=== PATIENT | male | born 1995 | race Hispanic/Latino ===

== ENCOUNTER 2018-08-28 16:36 | Emergency (ER) | payer BC ==
[~2018-08-28 16:36] MED LIST: ISOVUE-370 76%-LOCM 1 ML ONE
[2018-08-28] MEDS ORDERED: methylPREDNISolone Sod Succ/PF 125 MG/2 ML VIAL ONE (18:03)
[2018-08-28] MEDS ORDERED: diphenhydrAMINE 12.5 MG/5 ML UDCUP ONE (18:03)
[2018-08-28] MEDS ORDERED: diphenhydrAMINE 50 MG/ML VIAL ONE (18:04)
[2018-08-28 18:24] LABS: #Basophils 0.1 thou/uL (0.0-0.2); #Eosinphils 0.3 thou/uL (0.0-0.7); #Lymphocytes 3.4 thou/uL (1.20-3.40); #Monocytes 0.9 thou/uL (0.11-0.59); #Neutrophils 8.6 thou/uL (1.40-6.50); %Basophils 0.4 % (0.0-1.0); %Eosinophils 2.6 % (0.0-10.0); %Lymphocytes 25.5 % (28.0-48.0); %Monocytes 6.5 % (0.0-4.0); Hemoglobin 16.7 g/dL (14.0-18.0); Mean Corpuscular Hemoglobin 28.3 pg (25.0-35.0); Mean Corpuscular Volume 85.5 fL (78.0-98.0); Mean Platelet Volume 7.1 fL (7.4-10.4); Platelet Count 312 thou/uL (130-400); RBC Distribution Width 12.9 % (11.5-14.5); Red Blood Cell (RBC) Count 5.89 mill/uL (4.00-5.20); White Blood Cell (WBC) Count 13.2 thou/uL (4.8-10.8)
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
[2018-08-28 18:44] LABS: ALT (SGPT) 33 U/L (8-55); AST (SGOT) 15 U/L (5-34); Albumin 4.3 g/dL (3.5-5.0); Alkaline Phosphatase 176 U/L (Less than 750); Anion Gap 14 mmol/L (10-20); BUN (Urea Nitrogen) 14 mg/dL (8.9-20.6); Bilirubin, Total 0.3 mg/dL (0.2-1.2); Calc. Creatinine Clearance 0 mL/min (70-130); Calcium 9.2 mg/dL (7.8-10.44); Carbon Dioxide 21 mmol/L (22-29); Chloride 106 mmol/L (98-107); Estimated GFR-MDRD 79; Globulin 3.7 g/dL (2.4-3.5); Glucose 88 mg/dL (70-105); Potassium 3.9 mmol/L (3.5-5.1); Sodium 137 mmol/L (136-145)
== END 2018-08-28 19:52 | disposition home or self-care (01) ==
LOC: ERS 16:36
DX: K94.09 Other complications of colostomy (principal); T50.8X5A Adverse effect of diagnostic agents, initial encounter
CPT/HCPCS: 36415; 74177; 80053; 85025; 96374; 96375; J1200; J2930; Q0163

== ENCOUNTER 2018-10-30 08:27 | Outpatient (CLI) | payer BC ==
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
[2018-10-30] MEDS ORDERED: MD-Gastroview 120 ML BOT ONE (16:29)
== END 2018-10-30 08:28 | disposition home or self-care (01) ==
LOC: RAD 08:27
PROVIDERS: ATTEND Surgery
DX: K63.1 Perforation of intestine (nontraumatic) (principal); Z98.890 Other specified postprocedural states
CPT/HCPCS: 74270; Q9963

== ENCOUNTER 2018-11-28 15:00 | Inpatient (IN) | payer BC ==
[2018-12-01] MEDS ORDERED: Neomycin-Polymyxin 1 ML AMP ONE (07:02)
[2018-12-01] MEDS ORDERED: cefOXitin 2 GM VIAL ONE ×2 (07:05→09:35)
[2018-12-01] MEDS ORDERED: Ketorolac Tromethamine 30 MG/ML VIAL ONE (07:05)
[2018-12-01] MEDS ORDERED: Sodium Chloride 0.9% 100 ML ONE (07:09)
[2018-12-01] MEDS ORDERED: Fentanyl 100 MCG/2 ML VIAL ONE ×4 (07:14→12:19)
[2018-12-01] MEDS ORDERED: Midazolam HCl 2 mg/2 ml Vial ONE (07:14)
[2018-12-01 07:36] LABS: Anion Gap 12 mmol/L (10-20); BUN (Urea Nitrogen) 12 mg/dL (8.9-20.6); Calc. Creatinine Clearance 173 mL/min (70-130); Calcium 9.6 mg/dL (7.8-10.44); Carbon Dioxide 25 mmol/L (22-29); Chloride 105 mmol/L (98-107); Estimated GFR-MDRD 75; Glucose 90 mg/dL (70-105); Sodium 138 mmol/L (136-145)
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
[2018-12-01] MEDS ORDERED: Morphine 2 MG/ML SYRINGE SLOW IVP PRN (10:16)
[2018-12-01] MEDS ORDERED: Dextrose 50% Abboject 50 ML SYRINGE SLOW IVP PRN (10:16)
[2018-12-01] MEDS ORDERED: Dextrose 5% in Water 1,000 ML IV PRN (10:16)
[2018-12-01] MEDS ORDERED: Promethazine HCl 25 MG/ML VIAL IM PRN (10:19)
[2018-12-01] MEDS ORDERED: Promethazine HCl 25 MG/ML VIAL SLOW IVP PRN (10:19)
[2018-12-01] MEDS ORDERED: Ondansetron HCl/PF 4 MG/2 ML Vial IVP PRN (10:19)
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
[2018-12-01] MEDS ORDERED: Morphine 2 MG/ML SYRINGE ONE ×3 (13:55→15:03)
[2018-12-01 15:32] VITALS: BMI 46.0
[2018-12-01] MEDS: Ondansetron PF 4 MG/2 ML Vial IVP PRN ×2 (16:05→21:08)
[2018-12-01] MEDS: Sodium Chloride 0.9% 1,000 ML IV SCH ×3 (16:06→20:51)
[2018-12-01] MEDS: Morphine 4 MG/ML VIAL SLOW IVP PRN ×3 (16:06→20:50)
[2018-12-01] MEDS: Enoxaparin Sodium 40 MG/0.4 ML SYRINGE SC SCH (20:50)
[2018-12-01] MEDS: Famotidine/PF 20 mg/2ml Vial SLOW IVP SCH (20:51)
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
[2018-12-02 05:33] LABS: #Eosinphils 0.2 thou/uL (0.0-0.7); #Lymphocytes 2.2 thou/uL (1.20-3.40); #Monocytes 1.2 thou/uL (0.11-0.59); #Neutrophils 12.7 thou/uL (1.40-6.50); %Basophils 0.2 % (0.0-1.0); %Eosinophils 1.3 % (0.0-10.0); %Lymphocytes 13.3 % (21.0-51.0); %Monocytes 7.4 % (0.0-10.0); %Neutrophils 77.9 % (42.0-75.0); Hemoglobin 14.3 g/dL (14.0-18.0); Mean Corpuscular HGB CONC 34.1 g/dL (32.0-36.0); Mean Corpuscular Hemoglobin 29.9 pg (27.0-31.0); Mean Corpuscular Volume 87.8 fL (78.0-98.0); Mean Platelet Volume 7.9 fL (7.4-10.4); Platelet Count 246 thou/uL (130-400); RBC Distribution Width 11.8 % (11.5-14.5); Red Blood Cell (RBC) Count 4.79 mill/uL (4.70-6.10); White Blood Cell (WBC) Count 16.4 thou/uL (4.8-10.8)
[2018-12-02 06:20] LABS: ALT (SGPT) 35 U/L (8-55); AST (SGOT) 18 U/L (5-34); Albumin 3.6 g/dL (3.5-5.0); Alkaline Phosphatase 142 U/L (40-150); Anion Gap 11 mmol/L (10-20); BUN (Urea Nitrogen) 8 mg/dL (8.9-20.6); Bilirubin, Total 0.7 mg/dL (0.2-1.2); Calc. Creatinine Clearance 225 mL/min (70-130); Carbon Dioxide 26 mmol/L (22-29); Chloride 103 mmol/L (98-107); Estimated GFR-MDRD Greater than 90; Globulin 3.1 g/dL (2.4-3.5); Glucose 103 mg/dL (70-105); Protein, Total 6.7 g/dL (6.0-8.3); Sodium 136 mmol/L (136-145)
[2018-12-02] MEDS: Sodium Chloride 0.9% 1,000 ML IV SCH (07:56)
[2018-12-02] MEDS: Famotidine/PF 20 mg/2ml Vial SLOW IVP SCH ×2 (08:04→20:52)
[2018-12-02 08:52] LABS: Magnesium 1.7 mg/dL (1.6-2.6); Phosphorus 3.6 mg/dL (2.3-4.7)
[2018-12-02] MEDS ORDERED: traMADol HCl 50 MG TAB PO PRN ×2 (11:26)
[2018-12-02] MEDS: Acetaminophen 500 MG TAB PO SCH ×3 (11:54→23:38)
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
[2018-12-02] MEDS ORDERED: Ibuprofen 600 MG TAB PO SCH (14:00)
[2018-12-02] MEDS: Enoxaparin Sodium 40 MG/0.4 ML SYRINGE SC SCH (20:52)
[2018-12-02] MEDS: Ketorolac Tromethamine 30 MG/ML VIAL IVP SCH (20:52)
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
[2018-12-03] MEDS: Acetaminophen 500 MG TAB PO SCH ×3 (05:46→18:24)
[2018-12-03 05:57] LABS: #Eosinphils 0.6 thou/uL (0.0-0.7); #Lymphocytes 2.7 thou/uL (1.20-3.40); #Monocytes 1.7 thou/uL (0.11-0.59); #Neutrophils 9.4 thou/uL (1.40-6.50); %Basophils 0.3 % (0.0-1.0); %Eosinophils 3.9 % (0.0-10.0); %Lymphocytes 18.8 % (21.0-51.0); %Monocytes 11.5 % (0.0-10.0); %Neutrophils 65.4 % (42.0-75.0); Hemoglobin 14.4 g/dL (14.0-18.0); Mean Corpuscular HGB CONC 34.6 g/dL (32.0-36.0); Mean Corpuscular Hemoglobin 30.2 pg (27.0-31.0); Mean Corpuscular Volume 87.1 fL (78.0-98.0); Mean Platelet Volume 7.6 fL (7.4-10.4); Platelet Count 232 thou/uL (130-400); RBC Distribution Width 11.8 % (11.5-14.5); Red Blood Cell (RBC) Count 4.76 mill/uL (4.70-6.10); White Blood Cell (WBC) Count 14.4 thou/uL (4.8-10.8)
[2018-12-03 07:04] LABS: Anion Gap 11 mmol/L (10-20); BUN (Urea Nitrogen) 7 mg/dL (8.9-20.6); Calc. Creatinine Clearance 202 mL/min (70-130); Calcium 9.1 mg/dL (7.8-10.44); Carbon Dioxide 28 mmol/L (22-29); Chloride 101 mmol/L (98-107); Estimated GFR-MDRD 88; Glucose 89 mg/dL (70-105); Magnesium 1.8 mg/dL (1.6-2.6); Phosphorus 2.2 mg/dL (2.3-4.7); Potassium 3.4 mmol/L (3.5-5.1); Sodium 137 mmol/L (136-145)
[2018-12-03] MEDS ORDERED: Magnesium 2 GM/50 ML 2 GM in Premix Bag 1 BAG IVPB SCH (07:30)
[2018-12-03] MEDS: Famotidine/PF 20 mg/2ml Vial SLOW IVP SCH ×2 (09:06→20:48)
[2018-12-03] MEDS: Ketorolac Tromethamine 30 MG/ML VIAL IVP SCH ×2 (09:09→20:47)
--- NOTE | 2018-12-03 10:58 | PRG ---
DATE OF SERVICE: 12/03/2018 SUBJECTIVE: Mr. Weir is a 23-year-old man, who is postop day #2 today status post mini-laparotomy, takedown of ileostomy with primary enteroenterostomy. He is awake and alert today. Reports adequate pain control. He is tolerating clear liquid diet and he has had a bowel movement. He is passing flatus. OBJECTIVE: VITAL SIGNS: Today includes blood pressure 121/74, pulse 54, respiratory rate is 18, temperature 98.3 degrees Fahrenheit, and oxygen saturation is 97% on room air. HEART: Reveals regular rate and rhythm. No murmurs or gallops auscultated. LUNGS: Clear to auscultation bilaterally. Breathing, regular and nonlabored. ABDOMEN: Soft and obese with incisional tenderness to palpation. He has no rebound tenderness present. VAC dressing is over the incisional closure. NEUROLOGIC: Reveals no focal deficits present. LABORATORY DATA: Laboratory findings today includes a CBC with 14,400 white blood cells and hemoglobin and hematocrit 14.4 and 41.5 respectively. Platelet count is 232,000. Metabolic profile; sodium is 137, potassium is 3.4, chloride is 101, bicarb is 28, BUN is 7, creatinine is 1.06, glucose is 89, magnesium is 1.8, and phosphorus is 2.2. IMPRESSION: 1. Postop day #2 status post mini laparotomy with takedown of ileostomy and primary anastomosis. 2. Acute hypokalemia. 3. Acute hypomagnesemia. 4. Acute hypophosphatemia. PLAN: 1. Correct abnormal electrolytes. 2. Increase diet to full liquids. 3. Increase activity per walking program. Anticipate discharge over the next 24 hours, if the patient remains hemodynamically stable with no exacerbation of abdominal pain. Above findings and plan discussed with the patient and his mother at bedside. They both indicated understanding the information given. I have answered their questions. Job ID: [id number]
[2018-12-03] MEDS ORDERED: Potassium Chloride 20 MEQ TAB PO SCH (11:15)
[2018-12-03] MEDS ORDERED: PHOS-NAK 1 PKT PACK PO SCH (11:15)
[2018-12-03] MEDS: Enoxaparin Sodium 40 MG/0.4 ML SYRINGE SC SCH (20:48)
[2018-12-04] MEDS: Acetaminophen 500 MG TAB PO SCH ×2 (00:11→06:16)
--- NOTE | 2018-12-04 01:08 | PRG ---
DATE OF SERVICE: 12/03/2018 SUBJECTIVE: The patient remains on the surgical floor. The patient is postop day #2, status post mini-laparotomy, takedown of ileostomy with primary enterocolostomy. The patient is currently sleeping comfortably. OBJECTIVE: VITAL SIGNS: Stable, afebrile. GENERAL: Resting comfortably, respirations are even and unlabored, no acute distress. ASSESSMENT: 1. Postop day #2, status post mini-laparotomy with takedown of ileostomy and primary anastomosis. 2. Acute hypokalemia. 3. Acute hypomagnesium. 4. Acute hypophosphatemia. PLAN: Correct electrolytes as needed. Increase diet. Continue full liquids as tolerated. Increase activity per walking program. Job ID: [id number]
[2018-12-04 07:27] LABS: Anion Gap 11 mmol/L (10-20); BUN (Urea Nitrogen) 9 mg/dL (8.9-20.6); Calc. Creatinine Clearance 212 mL/min (70-130); Calcium 9.3 mg/dL (7.8-10.44); Carbon Dioxide 26 mmol/L (22-29); Chloride 105 mmol/L (98-107); Estimated GFR-MDRD Greater than 90; Glucose 88 mg/dL (70-105); Phosphorus 3.5 mg/dL (2.3-4.7); Potassium 3.4 mmol/L (3.5-5.1); Sodium 139 mmol/L (136-145)
[2018-12-04] MEDS ORDERED: PHOS-NAK 1 PKT PACK PO SCH (07:45)
[2018-12-04] MEDS ORDERED: Ibuprofen 800 MG TAB PO SCH (07:45)
[2018-12-04] MEDS ORDERED: Potassium Chloride 20 MEQ TAB PO SCH (07:45)
[2018-12-04 08:14] VITALS: BP 148/91; TEMP 98.7
[2018-12-04] MEDS: Famotidine/PF 20 mg/2ml Vial SLOW IVP SCH (08:17)
--- NOTE | 2018-12-04 11:56 | DIS ---
DATE OF ADMISSION: 12/01/2018 DATE OF DISCHARGE: 12/04/2018 RESIDENT: Km Gudino MD. ATTENDING: Tristan Krause DO. CONSULTS: None. PROCEDURES: On 12/01, mini-laparotomy with ileostomy takedown and primary ileoileostomy. DISCHARGE MEDICATIONS: 1. Acetaminophen. 2. Ibuprofen. 3. Tramadol. HISTORY OF PRESENT ILLNESS: The patient is postop day 3, status post mini-laparotomy, takedown of ileostomy with primary enterocolostomy. The patient is resting comfortably today. He has been walking well with a walking program and is ready to go home. We discussed with the patient when to follow up with Dr. Krause and the patient understood and agreed. OBJECTIVE: VITAL SIGNS: Stable. HEENT: Atraumatic and normocephalic. GENERAL: Resting comfortably. RESPIRATORY: Breathing is nonlabored. ABDOMEN: The dressing and vacuum from surgery were removed. The area was cleaned and dry clean dressing was placed over the wound. DIAGNOSES: 1. Postop day #3, status post mini-laparotomy and takedown of ileostomy and primary anastomosis. 2. Hypokalemia. Potassium was given this morning. 3. Hypomagnesium, resolved. 4. Hypophosphatemia, resolved. DISPOSITION: Stable. DISCHARGE INSTRUCTIONS: 1. Location: Home. 2. Diet: As tolerated. 3. Activity: As tolerated. FOLLOWUP: Followup up with Dr. Krause, Trauma in 10 days for zeynep to be removed. Job ID: [id number] MTDD
== END 2018-12-04 13:20 | disposition home or self-care (01) | DRG 330 ==
LOC: SURG A 12-01 06:33
PROVIDERS: ADMIT Surgery; ATTEND Surgery
PROC: 0DBB0ZZ Excision of Ileum, Open Approach (ICD-10-PCS; principal; 2018-12-01)
DX: Z43.2 Encounter for attention to ileostomy (principal); Z68.42 Body mass index [BMI] 45.0-49.9, adult; E66.01 Morbid (severe) obesity due to excess calories; E87.6 Hypokalemia; E83.42 Hypomagnesemia; E83.39 Other disorders of phosphorus metabolism
CPT/HCPCS: 36415; 36416; 80048; 80053; 83036; 83735; 84100; 85025; 93005; 93010; J0131; J0694; J1650; J1885; J2250; J2270; J2405; J3010; J3475; J3490; J7050; S0028

== ENCOUNTER 2023-01-24 13:57 | Emergency (ER) | payer BC ==
[2023-01-24] MEDS ORDERED: Ketorolac Tromethamine 30 MG/ML VIAL ONE (15:29)
== END 2023-01-24 16:28 | disposition home or self-care (01) ==
LOC: ERS 13:57
DX: S23.41XA Sprain of ribs, initial encounter (principal); X50.0XXA Overexertion from strenuous movement or load, initial encounter
CPT/HCPCS: 71046; 96372; J1885

== ENCOUNTER 2023-02-24 21:02 | Observation (INO) | payer BC ==
[2023-02-24 21:29] LABS: #Basophils 0.1 thou/uL (0.0-0.2); #Eosinphils 0.6 thou/uL (0.0-0.7); #Neutrophils 9.8 thou/uL (1.40-6.50); %Basophils 0.3 % (0.0-1.0); %Eosinophils 3.9 % (0.0-10.0); %Lymphocytes 20.1 % (21.0-51.0); %Monocytes 6.7 % (0.0-10.0); %Neutrophils 68.7 % (42.0-75.0); Hematocrit 47.6 % (42.0-52.0); Hemoglobin 16.1 g/dL (14.0-18.0); Mean Corpuscular HGB CONC 33.8 g/dL (32.0-36.0); Mean Corpuscular Hemoglobin 28.1 pg (27.0-31.0); Mean Corpuscular Volume 83.1 fl (78.0-98.0); Mean Platelet Volume 9.7 fL (7.4-10.4); Platelet Count 273 10x3/uL (130-400); RBC Distribution Width 13.4 % (11.5-14.5); Red Blood Cell (RBC) Count 5.73 mill/uL (4.70-6.10); White Blood Cell (WBC) Count 14.3 10x3/uL (4.8-10.8)
[2023-02-24] MEDS ORDERED: Ondansetron PF 4 MG/2 ML Vial ONE (21:32)
[2023-02-24] MEDS ORDERED: Morphine 4 MG/ML VIAL ONE (21:32)
[2023-02-24 21:50] LABS: ALT (SGPT) 15 U/L (8-55); AST (SGOT) 14 U/L (5-34); Albumin 4.2 g/dL (3.5-5.0); Alkaline Phosphatase 141 U/L (40-110); Anion Gap 15 mmol/L (10-20); BUN (Urea Nitrogen) 16 mg/dL (8.9-20.6); Bilirubin, Total 0.4 mg/dL (0.2-1.2); Calc. Creatinine Clearance 0 mL/min (70-130); Calcium 9.3 mg/dL (7.8-10.44); Carbon Dioxide 24 mmol/L (22-29); Chloride 106 mmol/L (98-107); Estimated GFR 96; Globulin 3.7 g/dL (2.4-3.5); Glucose 99 mg/dL (70-105); Lipase 12 U/L (8-78); Potassium 3.9 mmol/L (3.5-5.1); Protein, Total 7.9 g/dL (6.0-8.3); Sodium 141 mmol/L (136-145)
[2023-02-25] MEDS ORDERED: Acetaminophen 650 MG Suppository PR PRN (01:05)
[2023-02-25] MEDS ORDERED: Ondansetron PF 4 MG/2 ML Vial IVP PRN (01:05)
[2023-02-25] MEDS ORDERED: Ondansetron ODT 4 MG TAB PO PRN (01:05)
[2023-02-25] MEDS ORDERED: Acetaminophen 325 MG TAB PO PRN (01:05)
[2023-02-25] MEDS: Dextrose 5%-Lactated Ringers 1,000 ML IV SCH ×2 (01:30→09:32)
[2023-02-25 01:51] VITALS: BMI 51.0
[2023-02-25 06:41] LABS: #Eosinphils 0.5 thou/uL (0.0-0.7); #Monocytes 0.9 thou/uL (0.11-0.59); #Neutrophils 7.1 thou/uL (1.40-6.50); %Basophils 0.3 % (0.0-1.0); %Eosinophils 4.6 % (0.0-10.0); %Lymphocytes 24.7 % (21.0-51.0); %Monocytes 7.8 % (0.0-10.0); %Neutrophils 62.3 % (42.0-75.0); Hematocrit 48.3 % (42.0-52.0); Hemoglobin 15.7 g/dL (14.0-18.0); Mean Corpuscular HGB CONC 32.5 g/dL (32.0-36.0); Mean Corpuscular Hemoglobin 27.9 pg (27.0-31.0); Platelet Count 277 10x3/uL (130-400); RBC Distribution Width 13.4 % (11.5-14.5); Red Blood Cell (RBC) Count 5.62 mill/uL (4.70-6.10); White Blood Cell (WBC) Count 11.4 10x3/uL (4.8-10.8)
[2023-02-25 06:47] LABS: Mean Corpuscular Volume 85.9 fl (78.0-98.0)
[2023-02-25 07:10] LABS: Anion Gap 14 mmol/L (10-20); BUN (Urea Nitrogen) 13 mg/dL (8.9-20.6); Calc. Creatinine Clearance 259 mL/min (70-130); Calcium 8.7 mg/dL (7.8-10.44); Carbon Dioxide 23 mmol/L (22-29); Chloride 106 mmol/L (98-107); Estimated GFR 115; Glucose 100 mg/dL (70-105); Potassium 4.1 mmol/L (3.5-5.1); Sodium 139 mmol/L (136-145)
[2023-02-25] MEDS ORDERED: Famotidine 20 MG TAB PO SCH (09:00)
[2023-02-25 16:32] VITALS: BP 158/102; TEMP 97.6
== END 2023-02-25 18:18 | disposition home or self-care (01) ==
LOC: ERS 21:02 → T4-B 02-25 00:13
PROVIDERS: ADMIT Student in an Organized Health Care Education/Training Program; ATTEND Hospitalist
DX: R10.9 Unspecified abdominal pain (principal); E66.9 Obesity, unspecified; Z79.899 Other long term (current) drug therapy; Z91.041 Radiographic dye allergy status; F12.10 Cannabis abuse, uncomplicated; Z98.890 Other specified postprocedural states
CPT/HCPCS: 36415; 74176; 80048; 80053; 83690; 85025; 96361; 96374; 96375; G0378; J2270; J2405

== ENCOUNTER 2023-05-06 11:46 | Emergency (ER) | payer BC | END 2023-05-06 13:40 | disposition home or self-care (01) | LOC: ERS 11:46 | DX: M79.601 Pain in right arm (principal); R20.2 Paresthesia of skin; Z55.6 Problems related to health literacy | CPT/HCPCS: 99283 ==

== ENCOUNTER 2023-05-17 04:47 | Emergency (ER) | payer BC ==
[2023-05-17] MEDS ORDERED: Lidocaine 1% MPF 2 ML VIAL ONE (05:16)
[2023-05-17] MEDS ORDERED: Ketorolac Tromethamine 30 MG (1 mL) VIAL ONE (05:16)
[2023-05-17] MEDS ORDERED: cefTRIAXone (ROCEPHIN) 500 MG VIAL ONE (05:17)
== END 2023-05-17 05:40 | disposition home or self-care (01) ==
LOC: ERS 04:47
DX: J01.00 Acute maxillary sinusitis, unspecified (principal)
CPT/HCPCS: 96372; 99283; J0696; J1885

== ENCOUNTER 2023-09-05 10:02 | Emergency (ER) | payer BC ==
[2023-09-05] MEDS ORDERED: Proparacaine 0.5% Opth 15 ML BOT ONE (10:14)
[2023-09-05] MEDS ORDERED: Fluorescein Opthalmic Strip ONE (10:14)
== END 2023-09-05 10:55 | disposition home or self-care (01) ==
LOC: ERS 10:02
DX: H16.002 Unspecified corneal ulcer, left eye (principal)
CPT/HCPCS: 99283

== ENCOUNTER 2023-12-01 19:06 | Emergency (ER) | payer BC | END 2023-12-01 19:48 | disposition home or self-care (01) | LOC: ERS 19:06 | DX: Z02.79 Encounter for issue of other medical certificate (principal); I10 Essential (primary) hypertension; Z79.899 Other long term (current) drug therapy | CPT/HCPCS: 99281 ==

== ENCOUNTER 2024-02-20 10:54 | Day surgery (SDC) | payer SELFPAY ==
[2024-02-20] MEDS ORDERED: Bupivacaine PF 0.5% 30 ML VIAL ONE ×2 (12:07→12:34)
[2024-02-20] MEDS ORDERED: fentaNYL 50 mcg/mL 1 mL Vial ONE (12:07)
[2024-02-20] MEDS ORDERED: EPINEPHrine 1 MG/ML VIAL ONE (12:07)
[2024-02-20] MEDS ORDERED: Midazolam HCl 2 mg/2 ml Vial ONE (12:07)
[2024-02-20] MEDS ORDERED: fentaNYL PF 100 MCG/2 ML SYRINGE ONE ×2 (12:29→12:36)
[2024-02-20] MEDS ORDERED: PROPOFOL 40 ML ONE (12:36)
[2024-02-20] MEDS ORDERED: Rocuronium Bromide 10 MG/ML (10ML VIAL) ONE (12:36)
[2024-02-20] MEDS ORDERED: Lidocaine 1% PF 5 ML VIAL ONE (12:36)
[2024-02-20] MEDS ORDERED: CEFAZOLIN 2 GM VIAL ONE (12:36)
[2024-02-20] MEDS ORDERED: Dexamethasone 4 mg/ml Vial ONE (12:36)
[2024-02-20] MEDS ORDERED: Ondansetron PF 4 MG/2 ML Vial ONE (12:36)
[2024-02-20] MEDS ORDERED: CEFAZOLIN 1 GM VIAL ONE (13:00)
[2024-02-20] MEDS ORDERED: SUGAMMADEX SODIUM 200 MG/2 ML VIAL ONE (13:13)
[2024-02-20] MEDS ORDERED: Dexmedetomidine 200 MCG/2 ML VIAL ONE (13:21)
[2024-02-20] MEDS ORDERED: HYDROcodone/Acetaminophen 5/325 mg Tablet ONE (16:26)
== END 2024-02-20 16:48 | disposition home or self-care (01) ==
LOC: SDC 10:54
PROVIDERS: ATTEND Orthopaedic Surgery
PROC: 0QSH04Z Reposition Left Tibia with Internal Fixation Device, Open Approach (ICD-10-PCS; principal; 2024-02-20)
PROC: 3E0T3BZ Introduction of Anesthetic Agent into Peripheral Nerves and Plexi, Percutaneous Approach (ICD-10-PCS; principal; 2024-02-20)
DX: S82.52XA Displaced fracture of medial malleolus of left tibia, initial encounter for closed fracture (principal); Z91.041 Radiographic dye allergy status; Z79.2 Long term (current) use of antibiotics; V49.9XXA Car occupant (driver) (passenger) injured in unspecified traffic accident, initial encounter
CPT/HCPCS: 94660; C1713; J0171; J0665; J0690; J1100; J2250; J2405; J2704; J3010